=== PATIENT | male | born 1985 | race Caucasian/White ===

== ENCOUNTER 2017-06-22 04:02 | Emergency (ER) | payer OTHER ==
[~2017-06-22] VITALS: Ht 182.9 cm; Wt 90.7 kg
[~2017-06-22 04:02] MED LIST: LORTAB 5 MG/5001 TAB PO; NOHOMEMEDICATIONS
[2017-06-22 04:39] VITALS: BP 135/95
== END 2017-06-22 04:41 | disposition left against medical advice (07) ==
LOC: ER 04:02
DX: Z53.21 Procedure and treatment not carried out due to patient leaving prior to being seen by health care provider (principal)

== ENCOUNTER 2020-07-01 16:54 | Emergency (ER) | payer OTHER ==
[~2020-07-01] VITALS: Ht 185.4 cm; Wt 86.2 kg
[2020-07-01] MEDS ORDERED: CEPHALEXIN500 MG PO (17:35)
[2020-07-01 17:45] VITALS: BP 138/81
== END 2020-07-01 17:45 | disposition home or self-care (01) ==
LOC: ER 16:54
DX: S61.511A Laceration without foreign body of right wrist, initial encounter (principal); W23.0XXA Caught, crushed, jammed, or pinched between moving objects, initial encounter; Y93.89 Activity, other specified; Y92.89 Other specified places as the place of occurrence of the external cause; Y99.0 Civilian activity done for income or pay

== ENCOUNTER 2020-07-15 17:19 | Emergency (ER) | payer OTHER ==
[~2020-07-15] VITALS: Ht 182.9 cm; Wt 86.2 kg
[~2020-07-15 17:19] MED LIST changes: +CEPHALEXIN500 MG PO
[2020-07-15 17:22] VITALS: BP 149/92
[2020-07-15] MEDS ORDERED: DOXYCYCLINE 10100 MG PO (17:33)
== END 2020-07-15 17:46 | disposition home or self-care (01) ==
LOC: ER 17:19
DX: L03.114 Cellulitis of left upper limb (principal)